=== PATIENT | male | born 1960 | race Caucasian/White ===

== ENCOUNTER 2022-04-14 15:18 | Observation (INO) | payer OTHER ==
[2022-04-14 15:41] VITALS: PULSE 85; TEMP 98.4; BMI 28.4
[2022-04-14 17:44] LABS: HEMATOCRIT 45.6 % (35.4-49); HEMOGLOBIN 15.9 GM/dL (11.7-16.9); MCH 31.1 pg (25.7-33.7); MCHC 34.8 g/dl (32.0-35.9); MEAN CELL VOLUME 89.5 fl (80-96); MEAN PLT VOLUME 6.3 fl (7.5-11.1); PLATELET COUNT 257 10^3/uL (134-434); RDW 13.8 % (11.9-15.9); WHITE BLOOD COUNT 6.5 K/mm3 (4.0-10.0)
[2022-04-14 18:08] LABS: CHLORIDE 96 mmol/L (98-107); SODIUM 130 mmol/L (136-145)
[2022-04-14 18:10] LABS: BLOOD UREA NITROGEN 17.3 mg/dL (7-18); CALCIUM 9.4 mg/dL (8.5-10.1); CO2 26 mmol/L (21-32); GLUCOSE,RANDOM 113 mg/dL (74-106)
[2022-04-14 18:15] LABS: BILIRUBIN,TOTAL 0.4 mg/dL (0.2-1); TOT PROT 8.6 g/dl (6.4-8.2)
[2022-04-14 18:16] LABS: ALK PHOS 58 U/L (45-117)
[2022-04-14 18:17] LABS: ANION GAP 8 MMOL/L (8-16); SGOT/AST 80 U/L (15-37); SGPT/ALT 36 U/L (13-61)
[2022-04-14] MEDS ORDERED: ASPIRIN 81 MG CHEWABLE TABLETS PO ONE (18:42)
[2022-04-14] MEDS ORDERED: ASPIRIN 81 MG CHEWABLE TABLETS ONE (19:03)
[2022-04-14 19:46] LABS: ALBUMIN 4.3 g/dl (3.4-5.0); BLOOD UREA NITROGEN 15.8 mg/dL (7-18); CALCIUM 9.4 mg/dL (8.5-10.1)
[2022-04-14 19:49] LABS: CREATININE 0.9 mg/dL (0.55-1.3)
[2022-04-14 19:51] LABS: BILIRUBIN,TOTAL 0.6 mg/dL (0.2-1); TOT PROT 7.8 g/dl (6.4-8.2)
[2022-04-14 21:56] VITALS: BP 154/82
== END 2022-04-15 09:08 | disposition home or self-care (01) ==
LOC: JER 15:18 → JERBED 18:10
PROVIDERS: ADMIT Hospitalist; ATTEND Hospitalist
DX: R42 Dizziness and giddiness (principal); R07.89 Other chest pain; I10 Essential (primary) hypertension; F41.9 Anxiety disorder, unspecified; L85.0 Acquired ichthyosis
CPT/HCPCS: 36415; 71046-TC-FY; 80053; 84484; 85027; 93005; 93010; 99285-25; C9803-CS; G0378; U0003; U0005